=== PATIENT | male | born 1955 | race Caucasian/White ===

== ENCOUNTER 2022-03-14 18:44 | Inpatient (IN) | payer MEDICARE, BC ==
[~2022-03-14] VITALS: Ht 185.4 cm; Wt 114.0 kg
[2022-03-14] MEDS ORDERED: ALBUTEROL SULF 2.5 MG/0.5ML(0.5%) NEB SOLN NEB ONE ×2 (19:00→22:30)
[2022-03-14 20:12] LABS: Basophils # (auto) 0.1 10 ^3/uL (0-0.2); Basophils % (auto) 0.6 % (0.0-2.0); Eosinophils # (auto) 0.1 10 ^3/uL (0-0.8); Eosinophils % (auto) 0.4 % (0.0-7.0); Hematocrit 43.9 % (41.0-53.0); Hemoglobin 15.2 g/dL (13.5-17.5); Lymphocytes # (auto) 6.5 10 ^3/uL (0.4-5.4); Lymphocytes % (auto) 44.2 % (10.0-50.0); Mean Corpuscular Hemoglobin 29.9 pg (28.0-32.0); Mean Corpuscular Hgb Conc. 34.5 g/dL (32.0-36.0); Mean Corpuscular Volume 86.6 fL (80.0-100.0); Monocytes # (auto) 0.6 10 ^3/uL (0-1.3); Monocytes % (auto) 4.3 % (0.0-12.0); Neutrophils # (auto) 7.4 10 ^3/uL (1.6-8.6); Neutrophils % (auto) 50.5 % (37.0-80.0); Nucleated Red Blood Cells % 0.2 %; Red Blood Cells 5.07 10^6/uL (4.5-5.90); Red Cell Distribution Width 14.5 % (11.8-14.3); White Blood Cell 14.7 10^3/uL (4.4-10.8)
[2022-03-14 20:27] LABS: Albumin 3.7 g/dL (3.4-5.0); Calcium 8.8 mg/dL (8.5-10.1); INR 1.01 (0.9-1.15); Magnesium 1.7 mg/dL (1.6-2.6); Potassium 4.1 mmol/L (3.5-5.1)
[2022-03-14 20:31] LABS: BUN/Creatinine Ratio 16.2; Bilirubin, Total 0.5 mg/dL (0.2-1.0); Phosphorus 2.6 mg/dL (2.5-4.90); Total Protein 6.9 g/dL (6.4-8.2)
[2022-03-14] MEDS ORDERED: DOXYCYCLINE 100MG/250ML 250 ML IV ONE (22:00)
[2022-03-14] MEDS ORDERED: cefTRIAXone 1GM/50ML D5W 50 ML IV ONE (22:00)
[2022-03-14] MEDS ORDERED: IPRATROPIUM BROM 0.5 MG/2.5ML INH SOL NEB ONE (22:30)
[2022-03-14] MEDS ORDERED: methylPREDNISolone SOD SUCC 125 MG/2 ML VL IV ONE (22:30)
[2022-03-15] MEDS ORDERED: ACETAMINOPHEN 325 MG TAB PO PRN (02:15)
[2022-03-15] MEDS ORDERED: MORPHINE SULFATE INJ 2 MG/ml SYRG IV PRN (02:15)
[2022-03-15] MEDS ORDERED: ONDANSETRON HCL 4 MG/2 ML VIAL IV PRN (02:15)
[2022-03-15] MEDS ORDERED: NITROGLYCERIN 0.4 MG SL TAB SL PRN (02:15)
[2022-03-15] MEDS ORDERED: TEMAZEPAM 15 MG CAP PO PRN (02:15)
[2022-03-15] MEDS ORDERED: ALBUTEROL SULF 2.5 MG/0.5ML(0.5%) NEB SOLN NEB PRN (02:15)
[2022-03-15 05:55] VITALS: BP 121/75
[2022-03-15] MEDS: ENOXAPARIN SOD 40 MG/0.4 ML SYRINGE SC SCH (09:31)
[2022-03-15] MEDS: PANTOPRAZOLE 40 MG TAB PO SCH (09:31)
[2022-03-15] MEDS: amLODIPine BESYLATE 5 MG TAB PO SCH (09:32)
[2022-03-15] MEDS: SPIRONOLACTONE 25 MG TAB PO SCH (09:32)
[2022-03-15] MEDS: DOXYCYCLINE 100MG/250ML 250 ML IV SCH (15:00)
[2022-03-15 22:00] VITALS: BP 142/82
[2022-03-15] MEDS: cefTRIAXone 1GM/50ML D5W 50 ML IV SCH (22:22)
[2022-03-15] MEDS: ATORVASTATIN 20 MG TAB PO SCH (22:22)
[2022-03-15] MEDS ORDERED: ESCI-28 PO ×2 (23:10→23:16)
[2022-03-15] MEDS ORDERED: ALLO100T PO (23:10)
[2022-03-15] MEDS ORDERED: FELO5TAB6 PO (23:10)
[2022-03-15] MEDS ORDERED: PANT40T (23:10)
[2022-03-15] MEDS ORDERED: ATOR20TA50 PO (23:10)
[2022-03-15] MEDS ORDERED: SPIR25TA8 PO (23:10)
[2022-03-15] MEDS ORDERED: TAMS1CAP25 PO (23:10)
[2022-03-15] MEDS ORDERED: TRAZ1TAB12 PO (23:10)
[2022-03-16] MEDS: DOXYCYCLINE 100MG/250ML 250 ML IV SCH ×2 (03:33→14:21)
[2022-03-16 05:00] VITALS: BP 130/78
[2022-03-16 05:32] LABS: Basophils # (auto) 0 10 ^3/uL (0-0.2); Basophils % (auto) 0.2 % (0.0-2.0); Eosinophils # (auto) 0 10 ^3/uL (0-0.8); Eosinophils % (auto) 0.1 % (0.0-7.0); Hematocrit 41.5 % (41.0-53.0); Hemoglobin 13.3 g/dL (13.5-17.5); Lymphocytes # (auto) 7.3 10 ^3/uL (0.4-5.4); Lymphocytes % (auto) 41.8 % (10.0-50.0); Mean Corpuscular Hemoglobin 28.3 pg (28.0-32.0); Mean Corpuscular Volume 88.7 fL (80.0-100.0); Monocytes # (auto) 1.2 10 ^3/uL (0-1.3); Monocytes % (auto) 6.7 % (0.0-12.0); Neutrophils # (auto) 8.9 10 ^3/uL (1.6-8.6); Neutrophils % (auto) 51.2 % (37.0-80.0); Nucleated Red Blood Cells % 0.1 %; Red Blood Cells 4.68 10^6/uL (4.5-5.90); Red Cell Distribution Width 14.8 % (11.8-14.3); White Blood Cell 17.4 10^3/uL (4.4-10.8)
[2022-03-16 05:40] LABS: Calcium 8.7 mg/dL (8.5-10.1)
[2022-03-16 05:42] LABS: BUN/Creatinine Ratio 16.4
[2022-03-16 09:00] VITALS: BP 133/68
[2022-03-16] MEDS ORDERED: guaiFENesin-DM 100/10mg/5ml SYR PO PRN (10:00)
[2022-03-16] MEDS: SPIRONOLACTONE 25 MG TAB PO SCH (10:58)
[2022-03-16] MEDS: amLODIPine BESYLATE 5 MG TAB PO SCH (10:58)
[2022-03-16] MEDS: ENOXAPARIN SOD 40 MG/0.4 ML SYRINGE SC SCH (10:58)
[2022-03-16] MEDS: PANTOPRAZOLE 40 MG TAB PO SCH (10:58)
[2022-03-16 13:00] VITALS: BP 133/78
[2022-03-16 17:00] VITALS: BP 143/72
[2022-03-16] MEDS: IPRATROPIUM BROM 0.5 MG/2.5ML INH SOL NEB SCH ×2 (18:00→19:14)
[2022-03-16] MEDS ORDERED: TAMSULOSIN HYDROCHLORIDE 0.4 MG CAP PO SCH (18:00)
[2022-03-16] MEDS: ALBUTEROL SULF 2.5 MG/0.5ML(0.5%) NEB SOLN NEB SCH ×2 (18:00→19:14)
[2022-03-16 21:47] VITALS: BP 143/72
[2022-03-16 22:00] VITALS: BP 107/70
[2022-03-16] MEDS: cefTRIAXone 1GM/50ML D5W 50 ML IV SCH (22:52)
[2022-03-16] MEDS: ATORVASTATIN 20 MG TAB PO SCH (22:53)
[2022-03-17] MEDS: DOXYCYCLINE 100MG/250ML 250 ML IV SCH (02:31)
[2022-03-17 05:00] VITALS: BP 128/73
[2022-03-17] MEDS: IPRATROPIUM BROM 0.5 MG/2.5ML INH SOL NEB SCH ×2 (06:44→13:47)
[2022-03-17] MEDS: ALBUTEROL SULF 2.5 MG/0.5ML(0.5%) NEB SOLN NEB SCH ×2 (06:44→13:47)
[2022-03-17 09:00] VITALS: BP 127/82
[2022-03-17] MEDS: PANTOPRAZOLE 40 MG TAB PO SCH (10:57)
[2022-03-17] MEDS: ENOXAPARIN SOD 40 MG/0.4 ML SYRINGE SC SCH (10:57)
[2022-03-17] MEDS: amLODIPine BESYLATE 5 MG TAB PO SCH (10:58)
[2022-03-17] MEDS: SPIRONOLACTONE 25 MG TAB PO SCH (10:58)
[2022-03-17 13:00] VITALS: BP 144/84
[2022-03-17] MEDS ORDERED: ALBUAER3 IN (13:05)
[2022-03-17] MEDS ORDERED: DOXY-332 PO (13:05)
[2022-03-17] MEDS ORDERED: DOXYCYCLINE 100 MG TAB/CAP PO SCH (22:00)
== END 2022-03-17 16:00 | disposition home or self-care (01) | DRG 871 ==
LOC: ER 18:46 → TELE 03-15 02:24 → TELE-EAST 03-15 21:38 → EAST 03-16 12:06
PROVIDERS: ADMIT Nurse Practitioner; ATTEND Nurse Practitioner Acute Care
DX: A41.9 Sepsis, unspecified organism (principal); J15.9 Unspecified bacterial pneumonia; J96.01 Acute respiratory failure with hypoxia; N17.0 Acute kidney failure with tubular necrosis; C91.10 Chronic lymphocytic leukemia of B-cell type not having achieved remission; J44.0 Chronic obstructive pulmonary disease with (acute) lower respiratory infection; B34.9 Viral infection, unspecified; E66.9 Obesity, unspecified; E78.5 Hyperlipidemia, unspecified; I10 Essential (primary) hypertension; Z20.822 Contact with and (suspected) exposure to COVID-19; Z79.899 Other long term (current) drug therapy
CPT/HCPCS: 36415; 71045; 71046; 80048; 80053; 82962; 83690; 83735; 83880; 84100; 84484; 85025; 85379; 85610; 87426; 87804; 93005; 94640; 96365; 96367; 96375; 99291; G0378; J0696; J3490